=== PATIENT | male | born 1940 | race Caucasian/White ===

== ENCOUNTER 2019-06-30 08:42 | Outpatient (CLI) | payer MEDICARE, OTHER ==
--- NOTE | 2019-06-30 09:53 | XRAY Report ---
Reason: RIGHT THUMB PX Procedure Date: 06/30/2019 Accession Number: [id number] Procedure: XRN - Knee 3 View RT CPT Code: Final Report FULL RESULT: EXAM: RIGHT KNEE RADIOGRAPHY EXAM DATE: 06/30/2019 09:13 AM. CLINICAL HISTORY: Right knee pain. COMPARISON: None. TECHNIQUE: 3 views. FINDINGS: Bones: Normal. No fractures or bone lesions. Joints: Degenerative changes are present. Minor osteophytic lipping spurring is seen. No significant joint space narrowing is seen. Alignment is preserved. No significant joint effusion. Soft Tissues: Normal. No soft tissue swelling. 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 No acute findings. [facility]
--- NOTE | 2019-06-30 09:53 | XRAY Report ---
Reason: RIGHT KNEE PAIN Procedure Date: 06/30/2019 Accession Number: [id number] / [id number] Procedure: XRN - Finger(s) RT CPT Code: Final Report FULL RESULT: EXAM: RIGHT FIRST DIGIT RADIOGRAPHY EXAM DATE: 06/30/2019 09:17 AM. CLINICAL HISTORY: Right thumb pain. COMPARISON: None. TECHNIQUE: 3 views. FINDINGS: Bones: Nondisplaced fracture involving the dorsal base of the distal phalanx of the first digit is seen. Intra-articular extension is seen. Joints: Mild to moderate diffuse degenerative changes are seen in the thumb joints. Soft Tissues: Normal. No soft tissue swelling. IMPRESSION: Nondisplaced distal phalanx fracture of the thumb. [facility]
== END 2019-06-30 08:43 | disposition home or self-care (01) ==
LOC: DI.N 08:42
PROVIDERS: ATTEND Physician Assistant
DX: M17.11 Unilateral primary osteoarthritis, right knee (principal); S62.524A Nondisplaced fracture of distal phalanx of right thumb, initial encounter for closed fracture
CPT/HCPCS: 73140